=== PATIENT | female | born 1955 | race Caucasian/White ===

== ENCOUNTER → 2017-11-28 | Outpatient (CLI) | payer BC | END | disposition home or self-care (01) | LOC: LAB 13:48 | DX: R94.7 Abnormal results of other endocrine function studies (principal) | CPT/HCPCS: 81050; 82530 ==

== ENCOUNTER → 2018-01-02 | Outpatient (CLI) | payer BC ==
[2018-01-02 15:15] LABS: Specimen Source CERVIX
[2018-01-03 15:24] LABS: Source Cervix
[2018-01-04 11:58] LABS: HPV Genotype 16 Not Detected (NOTDET); HPV Genotype 18 Not Detected (NOTDET)
[2018-01-11 12:22] LABS: HPV High Risk Other Not Detected (NOTDET)
== END ==
LOC: OLS 14:55 → LAB SHORT 14:55
PROVIDERS: Nurse Practitioner Women's Health
DX: Z12.4 Encounter for screening for malignant neoplasm of cervix (principal); Z20.2 Contact with and (suspected) exposure to infections with a predominantly sexual mode of transmission; Z91.89 Other specified personal risk factors, not elsewhere classified
CPT/HCPCS: 87491; 87591; 87624; G0123

== ENCOUNTER 2019-11-05 01:37 | Emergency (ER) | payer BC ==
[~2019-11-05] VITALS: Ht 157.5 cm; Wt 68.0 kg
== END 2019-11-05 03:41 | disposition home or self-care (01) ==
LOC: ER 01:37
DX: S09.90XA Unspecified injury of head, initial encounter (principal); F10.20 Alcohol dependence, uncomplicated; W01.198A Fall on same level from slipping, tripping and stumbling with subsequent striking against other object, initial encounter
CPT/HCPCS: 70450; 99284-25

== ENCOUNTER 2022-07-29 22:16 | Inpatient (IN) | payer MEDICARE, BC ==
[~2022-07-29] VITALS: Ht 157.5 cm; Wt 72.2 kg
[2022-07-29 23:20] LABS: Source, Urine Clean Catch
[2022-07-29 23:22] LABS: Bilirubin, Urine Neg (Neg); Blood, Urine Neg (Neg); Glucose Qualitative, Urine Neg (Neg); Ketones, Urine 1+ (Neg); Leukocyte Esterase, Urine 1+ (Neg); Nitrite, Urine Neg (Neg); Protein, Urine 1+ (Neg); Urobilinogen, Urine NORM (Normal)
[2022-07-29 23:28] LABS: Appearance, Urine Clear (Clear); Color, Urine Yellow (P-Yellow)
[2022-07-29 23:32] LABS: Bacteria Rare /hpf; Red Blood Cells, Urine Not Seen /hpf (0-2); Squamous Epithelial Cells Rare /hpf (Few); Transitional Epithelial Cells Few /hpf (0-Rare); White Blood Cells, Urine 0-2 /hpf (0-5)
[2022-07-29 23:47] LABS: BASOPHILS ABSOLUTE AUTO 0.06 K/mm3 (0.00-0.23); BASOPHILS PERCENT AUTO 1 % (0-2); EOSINOPHILS ABSOLUTE AUTO 0.08 K/mm3 (0.00-0.68); EOSINOPHILS PERCENT AUTO 2 % (0-6); Hematocrit 31.7 % (33.0-51.0); Hemoglobin 10.1 g/dL (11.5-16.0); IMMATURE GRAN ABSOLUTE AUTO 0.02 K/mm3 (0.00-0.10); IMMATURE GRAN PERCENT AUTO 1 % (0-1); LYMPHOCYTES PERCENT AUTO 17 % (21-46); MONOCYTES ABSOLUTE AUTO 0.38 K/mm3 (0.16-1.47); MONOCYTES PERCENT AUTO 9 % (4-13); Mean Corpuscular HGB 27.6 pg (26.0-34.0); Mean Corpuscular HGB Conc 31.9 g/dL (31.5-36.5); Mean Corpuscular Volume 87 fL (80-100); Mean Platelet Volume 9.1 fL (9.1-12.4); NEUTROPHILS PERCENT AUTO 70 % (41-73); Platelet Count 105 K/mm3 (150-400); RDW Coefficient Variation 16.5 % (11.7-14.2); RDW Standard Deviation 51.2 fL (35.1-46.3); Red Blood Cell Count 3.66 M/mm3 (3.80-5.20); White Blood Cell Count 4.14 K/mm3 (4.00-11.30)
[2022-07-30 00:13] LABS: Albumin, Blood 2.3 g/dL (3.4-5.0); Albumin/Globulin Ratio 0.6 (0.8-1.8); Bilirubin, Total 0.4 mg/dL (0.1-1.0); Bun/Creatinine Ratio 75.9 (12.0-20.0); Calcium, Blood 8.3 mg/dL (8.5-10.1); Creatinine, Blood 0.32 mg/dL (0.40-1.00); Free Thyroxine 1.26 ng/dL (0.70-1.60); Globulin, Blood 3.7 g/dL (2.2-4.0); Potassium, Blood 4.1 mmol/L (3.5-5.5); Thyroid Stimulating Hormone 8.16 uIU/mL (0.360-4.800)
--- NOTE | 2022-07-30 06:08 | NUR ---
NEW ADMIT/SHIFT SUMMARY: NEW ADMIT FROM ER TO ICU 7. PT ARRIVED TO UNIT VIA ER GURNEY AT 0415. PT WAS TRANSFERRED TO BED VIA SLIDE SHEET AND PT TOLERATED FAIRLY. PT IS A&O X 3 BUT DOES NOT KNOW THE YEAR; PT STATES " IT IS 1964." PT IS IRRITABLE AND ANXIOUS AT THIS. PT REQUESTS THAT WE STOP ASKING QUESTIONS BECAUSE SHE "DOESN'T WANT TO BE GRILLED." PT ON RA UPON ARRIVAL WITH O2 LEVELS 92< AND RR 20-24. CONTINUOUS FORGE HEATER IN PLACE WITH HR IN THE 80'S, SBP 100'S AND MAP 68<. FIRST LITER BOLUS COMPLETE, AND SECOND BOLUS STARTED AT THIS TIME; PT RESPONDING WELL TO FLUID REPLACEMENT. PT HAS HYPERACTIVE BS IN ALL QUADRANTS, MODERATE DISTENTION NOTED WITH A HX OF ALCOHOLIC ASCITES, AND TENDERNESS IN RLQ UPON PALPATION. PT HAD A SMALL BOWEL MOVEMENT IN THE ER PRIOR TO TRANSFER. PT CUURENTLY HAS TEMP GUADARRAMA IN PLACE THAT IS DRAINING TO GRAVITY; URINE MAKAYLA AND CLEAR. PT HAS REDDENED EVA AREA UPON ADMISSION, AND C/O TENDERNESS IN REGION. PT HAS SCATTERED BRUISES ON ARMS AND HANDS AND VARIOUS SKIN TEARS AND SCABS IN UPPER EXTREMITIES; SEE PICTURES. SIGNIFICANT CELLULITIS IN BLE WITH VARIOUS OPEN WOUNDS; PT STATES THIS IS A CHRONIC CONDITION. PT HAS PPP X 3, DOPPLER USED FOR R. PEDAL PULSE; CAP REFIL MAINTAINING < 3 SECONDS. PT WEAK IN LOWER EXTREMITIES, AND HAS MODERATE STRENGTH IN ARMS AND IS ABLE TO HELP WITH TURNING. PT "SOHAN" LEFT THE ER TO GO HOME AND GET SOME REST. THE PT'S DID NOT LEAVE A NUMBER AND TOLD THE MANAGER WORK THAT HE WILL CALL IN THE MORNING TO FIND OUT WHERE THE PT IS. WILL CONTINUE TO MONITOR UNTIL ONCOMING RN ARRIVES.
--- NOTE | 2022-07-30 07:43 | NUR ---
PT INTERMITTENTLY HOLLERING OUT, ASKED FOR HER , SAID HE WAS OUT ON THE COUCH, REORIENTED, ARGUED, ASKED FOR PAIN MEDS. VERY SLEEPY, SATS DROPPING TO MID 80'S, OXYGEN VIA NC @ 2L APPLIED WITH SATS TO MID 90'S. BILAT LOWER EXTREM ITIES ARE SCALEY, RED, RAW, BLOODY, IRRITATED AND SWOLLEN, DIFFICULT TO FEEL PULSES. CORE TEMP 97.2 VIA GUADARRAMA, IV FLUIDS INFUSING PER ORDERS.
--- NOTE | 2022-07-30 08:19 | NUR ---
NOTIFIED OF CONSULT. INFORMATION GIVEN.
--- NOTE | 2022-07-30 13:55 | NUR ---
ANI MOVES POSITION IN BED TO HER COMFORT. SHE RAISES AND LOWERS THE LEFT LEG AND MOVES HER UPPER BODY, MINIMAL SHIFTING TO THE RIGHT HIP. WHEN SHE WAKES SHE COMPLAINS OF PAIN. SHE IS NOTED TO HAVE REDNESS IN THE ABDOMINAL FOLD AND GROIN FOLDS, UPON TRYING TO CLEAN AND POWDER THESE AREAS PT GETS UPSET AND COMPLAINS OF DISCOMFORT. SHE STATES SHE HAS NEUROPATHY IN HER LEGS AND THAT IS WHY SHE HASN'T BEEN CARING FOR THEM. ALTHOUGH WHEN LIFTING TO REPOSITION, SHE HOLLERS OUT IN PAIN. O2 VIA NC @ 2L WITH GOOD MAINTENANCE OF SATS.
--- NOTE | 2022-07-30 15:01 | NUR ---
IN TO SEE PT, PT NOT ABLE TO ANSWER QUESTIONS FOR HIM. ONCE HE EXAMINES HER AND LEAVES SHE IS ABLE TO MAKE SMALL CONVERSATION, CANNOT ANSWER SIMPLE QUESTIONS, LIKE "HOW LONG HAVE YOU LIVED IN [place]?" SHE ANSWERS, "I WAS BORN IN [place].". WHEN QUESTIONED ABOUT HER LEGS, SHE DOESN'T ANSWER AGAIN. SHE TALKS ABOUT MANNS CHOICE. WILL ASK MY NAME AND THEN SAY, "OH, THAT'S RIGHT, YOU JUST TOLD ME." SHE REPEATEDLY SAYS, "IT'S NICE HERE, I LIKE IT HERE." REMINDED THAT SHE IS IN THE HOSPITAL AND SHE SAYS, "YES."
[2022-07-30 15:05] LABS: International Normalized Ratio 1.12; Prothrombin Time Results 11.7 Sec (9.7-11.5)
--- NOTE | 2022-07-30 17:45 | NUR ---
ANI IS RESTING QUIETLY AT THIS TIME, OXYGEN VIA NC @ 2L, HEART RATE AND VITALS STABLE. RIGHT LEG IS WEEPING SEROSANGUINOUS, PAINFUL TO TOUCH. LEFT LEG IS LESS SWOLLEN AND SLOUGHING LESS THAN THE RIGHT, STILL PAINFUL TO THE TOUCH. TOOK IN ONLY A COUPLE OF BITES OF FOOD AT DINNER, DRANK WATER WELL. PT IS NOW SURGICAL STATUS NO TELE, NO OTHER CHANGES.
--- NOTE | 2022-07-30 20:37 | NUR ---
PT ARRIVED TO THE FLOOR AT APPROX 1935, A/O X3. PT TRANSFERED FROM [facility] TO BED. VITAL SIGNS TAKEN. BLE WOUNDS ANGLE AT TIME OF ARRIVAL, ASSESSED AND DRESSED. REPORTS PAIN W/ MOVEMENT BUT STATES SHE HAS NO PAIN UNLESS BEING MOVED. PLEASANT AND COOPERATIVE W/ CARE. ORIENTED TO ROOM AND CALL LIGHT. WILL CONTINUE TO MONITOR.
[2022-07-31 04:02] LABS: Vancomycin, Trough 4.2 ug/mL (5.0-10.0)
--- NOTE | 2022-07-31 05:26 | NUR ---
SHIFT SUMMARY A/O X2-3, FORGETFUL AT TIMES. VITAL SIGNS STABLE THROUGHOUT SHIFT. GUADARRAMA DRAINING TO GRAVITY. PAIN MANAGED W/ IV PAIN MEDICATION. BLE WRAPPED AT BEGINING OF SHIFT. WILL CONTINUE TO MONITOR AND REPORT TO ONCOMING RN.
--- NOTE | 2022-07-31 16:42 | NUR ---
DR. ALVARADO ROUNDED DR. ALVARADO WAS NOTIFIED THAT PT COMPLAINED OF R ARM AND ANKLE PAIN. PT IS SOMEWHAT INCONSISTANT IN HER DESCRIPTION OF PAIN.
--- NOTE | 2022-07-31 18:12 | NUR ---
BLE DRESSINGS CHANGED BLE DRESSINGS REMOVED, PURULENT DRAINAGE FROM R LE WOUND. WHEN DRESSING FROM THE POSTERIOR PORTION OF THE LEG WAS REMOVED PT'T STARTED TO HAVE SOME BLEEDING, GENTLE PRESSURE WAS APPLIED AND BLEEDING STOPPED. PT'S RIGHT LEG WAS GENTLY CLEANSED WITH SKINTEGRITY. NON ADHERANT PADS WITH SCANT AMOUNT OF TRIPLE ABX OINTMENT APPLIED TO POSTERIOR WOUND. ABD PAD PLACED OVER NON-ADHERANT DRESSINGS TO ABSORB DRAINAGE. ABD PAD USED ON THE R MEDIAL LEG WOUND. PT HAS DRY WOUNDS TO THE ANTERIOR RIGHT ANKLE AND POSTERIOR FOOT, TRIPLE ABX OITMENT AND NON-ADHERANT DRESSING APPLIED. PT'S RIGHT LEG WAS GENTLY WRAPPED WITH CAITLIN WRAP TO THE ANKLE. GAUZE PLACE BETWEEN PT'S TOES ON THE RIGHT FOOT. PT COMPLAINED OF DISCOMFORT R/T LONG TOE NAILS GETTING CAUGHT ON THE BLANKETS, PT'S RIGHT TOES PADDED WITH 4X4 GAUZE AND KERLEX, ANOTHER CAITLIN WRAP WAS GENTLY APPLIED FROM THE FOOT TO THE ANKLE. WHEN PLACING DRESSING OVER THE TOES THIS RN NOTICED THE 4TH AND 5TH TOE APPEARED DUSKY AND DID NOT APPEAR TO HAVE CAP REFILL. DR. ALVARADO NOTIFIED, WILL CALL PODIATRY CONSULT PER DR. PLATT. LEFT LOWER EXTREMITY HAS FEWER WOUNDS THAT HAVE LESS DRAINAGE, WOUNDS TO THE LEFT LEG WERE COVERED WITH TRIPLE ABX OITMENT AND NON-ADHERANT DRESSINGS. DRESSINGS HELD IN PLACE WITH CAITLIN WRAP FROM THE KNEE TO THE FOOT. DR. ALVARADO NOTIFIED OF DRESSINGS/SUPPLIES USED FOR DRESSING CHANGE AND OF DUSKY 4TH AND 5TH TOES. PT WAS PREMEDICATED FOR DRESSING CHANGE. SHE BECAME QUITE PAINFUL AND YELLED OUT WHEN DRESSING TO THE RIGHT LEG WAS REMOVED AND THE WOUND CLEANSED. PT WAS ONLY ABLE TO TOLERAGE GENTLE CLEANSING TO THE BLE. THE AREA AROUND THE OPEN WOUNDS IS RED WITH DRY FLAKY SKIN. PT'S R FOOT IS RED, NO CHANGE FROM AM ASSESSMENT, TIBIAL AND PEDAL PULSES PRESENT BILATERALLY. PT RESPONDED WELL TO EXPLANTION BEFORE AND DURING DRESSING CHANGE. PT WAS PROVIDED WITH COACHING THROUGH THE DRESSING CHANGE. SHE RESPONDS WELL TO COMMUNICATION ABOUT WHAT STAFF ARE DOING. A SHEET AND BLANKET SUPPORT WAS PLACED ON THE END OF THE PATIENTS BED TO PREVENT DISCOMFORT FROM BLANKETS RESTING/CATCHING ON HER FEET.
--- NOTE | 2022-07-31 18:36 | NUR ---
SHIFT SUMMARY PT REMAINS IN THE HOSPITAL GETTING IV ABX FOR CELLULITIS INFECTION. AT THIS TIME ORTHO IS WAITING FOR INFECTION TO IMPROVE BEFORE DOING SURGERY. PLAN FOR PT TO BE NPO AT MIDNIGHT FOR POSSIBLE SURGERY TOMORROW, DEPENDING ON CELLULITIS INFECTION. DRESSINGS TO BLE CHANGED TODAY (SEE NOTE). PT HAS BEEN CONFUSED/FORGETFUL T/O THE DAY. PT HAS ALSO BEEN EMOTIONAL AND TEARFUL. SHE IS FEARFUL OF CARE BUT RESPONDS WELL WHEN STAFF PROVIDE EXPLANATIONS ABOUT CARE. PT HAS BEEN A 2 ASSIST FOR REPOSITIONING. MINIMAL PAIN WHILE AT REST, PT DECLINED PAIN MEDICATION MUCH OF THE DAY; SHE AGREED TO TAKE NORCO PRIOR TO DRESSING CHANGE THIS EVENING. PT'S SON AND VISITED THE PT TODAY. WILL MONITOR UNTIL REPORT TO NOC RN.
[2022-07-31 19:29] LABS: Vancomycin, Trough 20.7 ug/mL (5.0-10.0)
--- NOTE | 2022-07-31 19:48 | NUR ---
DR ZAMORA CONTACTED TO CLARIFY ARTERIAL IMAGING ORDER FOR BLE. OK TO HAVE IMAGING DONE ROUTINLY ON 08/01/22. ORDER DOES NOT NEED TO BE DONE STAT 07/31.
[2022-08-01 04:56] LABS: BASOPHILS ABSOLUTE AUTO 0.05 K/mm3 (0.00-0.23); BASOPHILS PERCENT AUTO 1 % (0-2); EOSINOPHILS PERCENT AUTO 2 % (0-6); Hematocrit 30.7 % (33.0-51.0); Hemoglobin 9.9 g/dL (11.5-16.0); IMMATURE GRAN ABSOLUTE AUTO 0.04 K/mm3 (0.00-0.10); IMMATURE GRAN PERCENT AUTO 1 % (0-1); LYMPHOCYTES PERCENT AUTO 18 % (21-46); MONOCYTES ABSOLUTE AUTO 0.51 K/mm3 (0.16-1.47); MONOCYTES PERCENT AUTO 10 % (4-13); Mean Corpuscular HGB 28.2 pg (26.0-34.0); Mean Corpuscular HGB Conc 32.2 g/dL (31.5-36.5); Mean Corpuscular Volume 88 fL (80-100); Mean Platelet Volume 9.8 fL (9.1-12.4); NEUTROPHILS ABSOLUTE AUTO 3.42 K/mm3 (1.96-9.15); NEUTROPHILS PERCENT AUTO 68 % (41-73); Platelet Count 106 K/mm3 (150-400); RDW Coefficient Variation 17.3 % (11.7-14.2); RDW Standard Deviation 54.9 fL (35.1-46.3); Red Blood Cell Count 3.51 M/mm3 (3.80-5.20); White Blood Cell Count 5.02 K/mm3 (4.00-11.30)
[2022-08-01 05:16] LABS: Bun/Creatinine Ratio 48.8 (12.0-20.0); Calcium, Blood 8.6 mg/dL (8.5-10.1); Creatinine, Blood 0.43 mg/dL (0.40-1.00); Magnesium, Blood 1.6 mg/dL (1.6-2.4); Potassium, Blood 3.9 mmol/L (3.5-5.5)
--- NOTE | 2022-08-01 08:00 | NUR ---
[employer] MAINTENANCE CHIEF AT BEDSIDE. REMOVED DRESSING TO RLE & REPLACED WITH NEW ABD PAD, GAUZE, & CAITLIN WRAP.
--- NOTE | 2022-08-01 10:49 | NUR ---
DR LOVELACE AT BEDSIDE TO EVALUATE PATIENT. STATED THAT PATIENT IS IN NEED OF PARTIAL HIP REPLACEMENT HOWEVER SURGERY WILL BE DLEAYED AWAITING PODIATRY CONSULT. VERBALLY ORDERED TO KEEP PATIENT NPO UNTIL PODIATRY CONSULTS PATIENT.
--- NOTE | 2022-08-01 17:43 | NUR ---
SHIFT SUMMARY NO ACUTE CHANGES THIS SHIFT. ORTHO SAW PATIENT AND ELECTED TO DELAY SURGERY UNTIL AFTER PODIATRY CONSULTED PATIENT. AWAITNG PODIATRY CONSULT THIS EVENING BY DR ZAMORA. PATIENT C/O MILD PAIN WITH MOVEMENT, MEDICATED PER EMAR. BLE MINIMAL DRAINAGE AND DRESSED W/ GAUZE & CAITLIN WRAPS PRN. GUADARRAMA IN PLACE AND DRAINING DARK YELLOW URINE. PATIENT DOES NOT USE CALL LIGHT APPROPRIATELY, WILL YELL OUT AT TIMES, NEEDS REINFORCEMENT OF CALL LIGHT USE OFTEN. WILL REPORT TO ONCOMING RN.
[2022-08-01 20:27] LABS: Vancomycin, Trough 20.6 ug/mL (5.0-10.0)
--- NOTE | 2022-08-02 03:37 | NUR ---
SHIFT SUMMARY PT VERY EMOTIONAL THIS SHIFT. CRIES FREQUENTLY WITH CARE. ALERT AND ORIENTED, BUT CAN APPEAR TO BE FORGETFUL AT TIMES. 1MG DILAUDID FOR PAIN MANAGEMENT. REPOSITIONING IN BED PRN AND KEEPING BLE ELEVATED ON PILLOWS. DRESSINGS TO BLE APPEAR CDI. IV ABX PER ORDERS. NPO SINCE MIDNIGHT FOR POSSIBLE PROCEDURE TODAY. CALL LIGHT WITHIN REACH.
[2022-08-02 04:51] LABS: Hematocrit 29.2 % (33.0-51.0); Hemoglobin 9.6 g/dL (11.5-16.0); Mean Corpuscular HGB 28.1 pg (26.0-34.0); Mean Corpuscular HGB Conc 32.9 g/dL (31.5-36.5); Mean Corpuscular Volume 85 fL (80-100); Mean Platelet Volume 9.3 fL (9.1-12.4); Platelet Count 116 K/mm3 (150-400); RDW Coefficient Variation 16.9 % (11.7-14.2); RDW Standard Deviation 52.8 fL (35.1-46.3); Red Blood Cell Count 3.42 M/mm3 (3.80-5.20)
[2022-08-02 05:58] LABS: Albumin, Blood 1.8 g/dL (3.4-5.0); Albumin/Globulin Ratio 0.5 (0.8-1.8); Bilirubin, Total 0.7 mg/dL (0.1-1.0); Bun/Creatinine Ratio 38.1 (12.0-20.0); Calcium, Blood 8.5 mg/dL (8.5-10.1); Creatinine, Blood 0.45 mg/dL (0.40-1.00); Globulin, Blood 3.5 g/dL (2.2-4.0); Percent Saturation 25.5 % (15.0-50.0); Potassium, Blood 3.9 mmol/L (3.5-5.5); Total Protein, Blood 5.3 g/dL (6.4-8.2)
--- NOTE | 2022-08-02 12:51 | NUR ---
DRESSINGS CHANGED ON BILATERAL LOWER EXTREMETIES. WOUND CLEANSER, NON ADHERENT PAD AND CAITLIN BANDAGE USED FOR LEFT LOWER LEG. PT TOLERATED WELL. BANDAGES ON RIGHT LEG WERE STUCK TO OPEN WOUNDS. REMOVAL WAS VERY PAINFUL FOR PT. MEDICATED PER EMAR. WOUND CLENSER USED. XEROFORM WAS PLACED ON OPEN AREA OF LEG, FOLLOWED BY ABD DRESSING, GAUZE ROLL, AND CAITLIN BANDAGE. ANTIBIOTIC OINTMENT USED ON LEFT FOOT AND THEN COVERED WITH A NON ADHERENT PAD AND GUAZE ROLL. LEGS RESTING ON PILLOWS. PT RESTING.
--- NOTE | 2022-08-02 17:40 | NUR ---
SHIFT SUMMARY PT TRANSFERED FROM SURGICAL FLOOR THIS MORNING. PT ADMITTED FOR SEPSIS D/T CELLULITES BUT PT ALSO HAS RIGH FEMUR FX. PT WAS TO BE NPO FOR POSSIBLE ORTHO SURGERY. PLACED CALL TO DR. CAMPUZANO IN AFTERNOON AND WAS NOTIFIED THAT THERE WOULD BE NO SURGERY TODAY AND THAT PT WAS OK TO EAT. BILATERAL LOWER DRESSING'S WERE CHANGED TODAY. RIGHT HIP AND LOWER LEGS ARE VERY PAINFUL WITH MOVEMENT OR TOUCH. PT MEDICATED X1 PER EMAR. PT VERY EMOTIONAL AND BECOMES TEARY EYED EASILY. DR CAMPUZANO WAS IN TO SEE PT LATE IN THE AFTERNOON. DR REQUESTED TO BE PART OF NEXT DRESSING CHANGE TOMORROW. WAS AT BEDSIDE DURING AFTERNOON. BED IN LOWEST POSITION AND CALL [facility] IN REACH.
--- NOTE | 2022-08-03 04:09 | NUR ---
SHIFT SUMMARY PT APPEARS TO BE MORE ALERT AND ORIENTED T/O SHIFT. AOX4. PT GETS EMOTIONAL EASILY. BED BATH, LINEN CHANGED. [place] PLACED. SHOWER CAP. ORAL CARE. PT REPORTS SIGNIFICANT RELIEF AFTER. PAIN IS TOLERABLE T/O SHIFT. MEDICATED WITH FENTANYL 25MCG ONCE AT MIDNIGHT AND NORCO 2 TAB TWICE. PAIN HAS APPETITE, HAS BEEN EATING AND DRINKING DENIES NAUSEA AND VOMITING. IV ABX ADMINISTERED. BLE WITH CAITLIN WRAP. PLAN FOR DR. CAMPUZANO TO RECHECK PT TODAY AND DRESSING CHANGE. PT ABLE TO HELP WITH REPOSITIONING, ABLE TO MOVE FROM SIDE TO SIDE WITH ASSISTANCE. GUADARRAMA IN PLACE WITH DARK URINE. CALL LIGHT WITHIN REACH. WILL PROVIDE REPORT TO ONCOMING NURSE.
[2022-08-03 04:11] LABS: Vancomycin, Trough 15.5 ug/mL (5.0-10.0)
--- NOTE | 2022-08-03 16:20 | NUR ---
Spiritual care visit attempted. Upon receiving a call from RN Audit Machine Operator Aureliano stating that the pt was requesting a Barge Captain visit, I visit pt. Pt Declines visit. I will continue to remain available.
--- NOTE | 2022-08-03 17:20 | NUR ---
SHIFT SUMMARY PT ALERT AND COOPERATIVE OF CARE. PT EMOTIONAL AND CRIES DURING MOST INTERACTIONS. PT AT TIMES SEEMS CONFUSED AND FORGETFUL. PT C/O RIGHT HIP PAIN WITH MOVEMENT. MEDICATED PER EMAR WITH GOOD AFFECT. PT ATE SMALL PORTIONS OF HER MEALS TODAY BUT TOLERATED WELL. PT USES CALL LIGHT APPROPTIATELY. BED IN LOWEST POSITION AND CALL LIGHT IN REACH.
--- NOTE | 2022-08-03 18:25 | NUR ---
DR CAMPUZANO ASSESSED PT'S HIP FX AND ASSISTED WITH THE DRESSING CHANGE. NEW BANDAGES APPLIED AND ORDERS WERE GIVEN.
--- NOTE | 2022-08-04 05:12 | NUR ---
VICE PRESIDENT OF TALENT ACQUISITION SUMMARY: A&Ox4. PLEASANT AND COOPERATIVE WITH CARE. VSS. NO ACUTE CONCERNS T/O THE NIGHT. IV ABx ADMINISTERED @ 0000 & 0400; PO NORCO x2 ADMINISTERED ONCE FOR BLE PAIN. NO BM TODAY. TEMP GUADARRAMA PATENT AND DRAINING TO GRAVITY. BLEs WRAPPED IN CAITLIN BANDAGES. TOES WARM AND WITH SENSATION TO TOUCH. IV x2 PATENT AND FLUSHING WITH SOME POSITIONING. CONTINUES TO HAVE EPISODES OF CRYING, STATING HOW GRATEFUL SHE IS FOR EVERYONE. WILL REPORT TO ONCOMING RN.
--- NOTE | 2022-08-04 18:14 | NUR ---
SHIFT SUMMARY PT A&O X 2. WHEN SPEAKING IS UNABLE TO COMPLETE A THOUGHT TO COMPLETION, JUMPS TO MANY DIFFERENT UNCONNECTED THOUGHTS/SUBJECTS. IS EASILY TEARY EYED. HAS GONE THROUGH 5-6 TISSUE BOXES THIS SHIFT. BILAT LEGS WITH DRESSINGS AND CAITLIN WRAPS. WOUND CLINIC CONSULT PENDING. PT C/O R HIP FRACTURE PAIN, MEDICATED PER EMAR UPON PT'S REQUEST FOR PAIN MEDS. F/C INTACT & PATENT, DRAINING CLEAR YELLOW URINE. PT IS PLEASANT & COOPERATIVE WITH ALL CARE. PLAN IS LIKELY SNF PLACEMENT FOR CONTINUED IV ANTI BIOTICS AND POSSIBLE HIP REPAIR SURGERY ONCE LEG CELLULITIS RESOLVES.
--- NOTE | 2022-08-05 04:23 | NUR ---
MANUFACTURING PLANT TECHNICIAN SUMMARY: A&Ox4. PLEASANT AND COOPERATIVE WITH CARE. VSS. HAS BEEN AWAKE MUCH OF THE NIGHT. MEDICATED PAIN x2. C/O RIGHT FOOT FEELING LIKE IT NEEDS TO BE ELEVATED MORE AND MORE. HAS ALSO BEEN VERY HUNGRY T/O THE NIGHT, REQUESTING MULTIPLE SNACKS AND READJUSTMENTS OF PILLOWS. NO ASE TO ABx. CONTINUES TO BE VERY TEARFUL WHEN TALKING WITH STAFF; HAS USED SIX BOXES OF TISSUES DURING THIS SHIFT, ALONE. NS RUNNING KVO RFA. THIERRY PATENT AND DRAINING TO GRAVITY. WILL REPORT TO ONCOMING RN.
[2022-08-05 15:48] LABS: Creatinine, Blood 0.47 mg/dL (0.40-1.00); Vancomycin, Trough 13.7 ug/mL (5.0-10.0)
--- NOTE | 2022-08-05 19:24 | NUR ---
SHIFT SUMMARY BILAT LOWER EXT DRESSING CHANGES DONE TODAY AFTER WOUND CLINIC NURSE SAW PT. PT A&O X 4. PLEASANT & COOPERATIVE WITH ALL CARE. PT WORKED WITH PT TODAY.
--- NOTE | 2022-08-06 04:12 | NUR ---
NOTCHING PRESS OPERATOR SUMMARY NO ACUTE CHANGES. PT AWAKE INTERMITTANTLY T/O THE NIGHT. PT IS ABLE TO ANSWER ORIENTATION QUESTIONS BUT HAS SOME CONFUSION, FLIGHT OF IDEAS, AND DIFFICULT RECALL. PT CONTINUES TO C/O OF PAIN PRIMARILY IN RLE; LITTLE PAIN IN RIGHT HIP. PT IS PAINFUL AT REPOSITION. ELEVATED BILATERAL HEELS OFF BED DUE TO SENSITIVITY AND REDDENING OF SKIN. APPLIED SILICONE CREAM TO DRY SKIN. EMOTIONALLY LIABLE AND EASILY TEARFUL. PAIN MEDS 3X P/EMAR. PT HAD A BLOOD PRESSURE OF 90/50; PT ASYMPTOMATIC; SITTING UP, TALKING, NO CHANGES IN MENTATION OR CAP REFILL. PT IS ABLE TO ADVOCATE FOR NEEDS; CALL LIGHT IN REACH.
--- NOTE | 2022-08-06 08:00 | NUR ---
Pt laying in bed watching tv, is very axious and tearful, she yelled out when this nurse moved the tube to her angel cath without touching her, she is a/ox3, pleasant and appreciative of care but very touchy, and emotional, reports right hip pain and leg pain, states as long as she doesn't move she's ok, any movement it shoots to 8/10, lungs are clear in upper adan, dim/course in bases, resp even and unlabored, no cough noted, hrr, some edema +1 to b/l le, pp faint, cap refill <4 sec, vs stable, running a bit low on b/p, iv site to rfa is clear and patent, infusing ns at tko, btx4, abd flat soft nontender, voids via angel cath draining clear yellow urine, skin has extensive wounds to right le, with nonstick dressing in place, skin is very dry fragile to b/l legs, moves upper ext well, daisha, call light in reach.
--- NOTE | 2022-08-06 12:59 | NUR ---
pt remains emotionally labile, tearful at times, did mediate her for pain, she reports it's much better, eating lunch at this time. call light in reach.
--- NOTE | 2022-08-06 14:48 | NUR ---
went to remove pts tray, she was unable to tell this nurse to take or leave her tray, is tearful, and sates she can't answer right now, left her tray, came back later to give her some medications, she was in a very different state, smiling, overnice. call light in reach.
--- NOTE | 2022-08-06 18:13 | NUR ---
Pt had a bedbath, had stool in attends, complete bed change, pt is very touchy about being touched and moving to fast for her, attempted to change her dressing on her right le, was able to remove the top dressing after soaking, but the one on the back is sticking a bit, and pt is screaming anytime she is touched, was able to get it about half way off, she couldn't tolerate it anymore so placed an abd pad under and left it that way, which she was in agreement for, no further changes this shift, call light in reach.
--- NOTE | 2022-08-07 03:08 | NUR ---
SUPERVISOR DRAPERY HANGING SUMMARY PT ON BED REST F/RT HIP FX AND CELLULITIS TO BLE. NO ACUTE CHANGES. PT RESTED MORE T/O THE NIGHT THAN THE PREVIOUS WAKEFUL NIGHT. PT INDICATED MORE PAIN CONTROL BUT SITLL C/O PAIN IN BLE'S AND RT HIP. COMPLETE BEDDING CHANGE THIS SHIFT AND FINISHED DRESSING CHANGE ON POSTERIOR RLE. DID NOT WRAP THE DRESSING PER PT REQUEST. PT IS VERY PAINFUL WHEN MOVING AND REQUIRES SLOW MOVEMENTS W/VERBAL CUES PRIOR TO. VSS. CONT W/NS KVO. PT A/OX4 BUT CONT T/HAVE FLIGHT OF IDEA AND NONSENSICAL THOUGHTS OCCASIONALLY. ELEVATED BLE T/RELIEVE PRESSURE OFF HEELS; APPEARANCE ARE RED NONBLANCHING. PT IS ABLE TO ADVOCATE FOR NEEDS AND CALLS APPROPRIATELY; CALL LIGHT IN REACH.
--- NOTE | 2022-08-07 19:08 | NUR ---
SHIFT SUMMARY: NO ACUTE CHANGES THIS SHIFT. PATIENT ALERT AND ORIENTED. SLOW TO RESPOND. USES CALL LIGHT APPROPRIATELY. DRESSING CHANGED TO BLE. PATIENT RECEIVED PRN PAIN MEDS PRIOR TO DRESSING CHANGED. PATIENT TOLERATED DRESSING CHANGED WELL WITHOUT SCREAMING AND YELLING OUT. PATIENT HAS BEEN RESTING IN BED OFF AND ON T/O SHIFT. GUADARRAMA PATENT DRAINING TO GRAVITY WITH YELLOW URINE. TURN Q2. PATIENT RECEIVED BEDBATH AND LINEN CHANGED THIS SHIFT. INFUSING NS KVO 25 MLS/HR. RECEIVED ALL SCHEDULED MEDS THIS SHIFT. BED IN LOWEST POSITION, LOCKED, BED ALARM ON AND CALL LIGHT IN REACH.
--- NOTE | 2022-08-08 04:16 | NUR ---
SENIOR RECEPTIONIST SUMMARY NO ACUTE CHANGES. PT RESTED T/O THE NIGHT WITH PERIODS OF WAKEFULLNESS. PT C/O INTENSE PAIN IN THE RIGHT LEG/HIP. MED PER EMAR. DRESSING TO BLE CDI. PT SLOW TO RESPOND; RESPONDS WELL TO VERBAL CUES BEFORE PROVIDING CARE/INTERVENTIONS. PT CALLS APPROPRIATELY AND ADVOCATES FOR NEED. CALL LIGHT IN REACH; BED ALARM ON.
[2022-08-08 05:06] LABS: Hematocrit 30.4 % (33.0-51.0); Hemoglobin 9.4 g/dL (11.5-16.0); Mean Corpuscular HGB 27.9 pg (26.0-34.0); Mean Corpuscular HGB Conc 30.9 g/dL (31.5-36.5); Mean Corpuscular Volume 90 fL (80-100); Mean Platelet Volume 9.9 fL (9.1-12.4); Platelet Count 194 K/mm3 (150-400); RDW Coefficient Variation 17.4 % (11.7-14.2); RDW Standard Deviation 55.4 fL (35.1-46.3); Red Blood Cell Count 3.37 M/mm3 (3.80-5.20)
[2022-08-08 05:26] LABS: Bun/Creatinine Ratio 43.6 (12.0-20.0); Calcium, Blood 8.1 mg/dL (8.5-10.1); Creatinine, Blood 0.44 mg/dL (0.40-1.00)
[2022-08-08 17:10] LABS: Vancomycin, Trough 13.9 ug/mL (5.0-10.0)
--- NOTE | 2022-08-08 20:15 | NUR ---
SUMMARY- PT A/O X4. BEDREST, ROUTINE TURNS. INCONT BM ONCE TODAY. GUADARRAMA CATH CARE COMPLETE. SKIN INTACT TO EVA, APPLIED POWDER. TOLERATING FOOD AND FLUIDS. PAIN IN LEGS CONTROLLED WITH NORCO 1 APPROX Q4. PREMICATED WITH DILAUDID BEFORE DRESSING CHANGE TO LE. APPLIED XEROFORM AND ABD AND SECRUED WITH CHICKEN SKIN AND NET. AND SON IN TO VISIT THIS DENA. DR CAMPUZANO BY ABOUT 1600 TO SEE PT. NO CHANGES IN ORDERS. REPORTED TO TOMAS PARRA.
--- NOTE | 2022-08-09 04:58 | NUR ---
SHIFT SUMMARY R leg and R hip fx continue to be a source of pain. Pt medicated per emar, only one episode of severe pain tonight from her R hip. Recieving IV ABX and her line is kept KVO between doses. AOx3, vss, uses call light appropriatly, pleasant and cooperative with care.
[2022-08-09] MEDS ORDERED: BISA10S PR (11:19)
[2022-08-09] MEDS ORDERED: HYDR1TAB94 PO (11:20)
[2022-08-09] MEDS ORDERED: DOCU100 PO (11:20)
[2022-08-09] MEDS ORDERED: CELEXA10 MG PO (11:20)
[2022-08-09] MEDS ORDERED: DULCOLAX400 MG/5 M PO (11:21)
[2022-08-09] MEDS ORDERED: LIQUACEL PO (11:28)
[2022-08-09] MEDS ORDERED: SENN187 PO (11:30)
[2022-08-09] MEDS ORDERED: VISBIOME 112.51 EACH PO (11:30)
[2022-08-09 13:30] LABS: SARS-Cov-2 (COVID-19) PCR, MMC NEGATIVE (NEGATIVE)
[2022-08-09] MEDS ORDERED: CEPH500 PO (13:52)
--- NOTE | 2022-08-09 16:40 | NUR ---
PT DISCHARGED TO [facility] [id number] [facility]. BED TO [facility]. BELONGINGS SENT INCLUDING "ANTIBA" GISELLEE TO HOSP. CALLED [facility] AND GAVE REPORT TO FUENTES. SENT WITH THIERRY AFTER CALL TO SHAKIR REID RELATED TO PT'S IMOBILITY AND WOUNDS. HAD BM BEFORE DC.
== END 2022-08-09 15:20 | DRG 871 ==
LOC: ER 22:16 → ICUE 22:17 → ICUW 22:17 → SURS 22:17 → MEDS 22:17 → ICUE 07-30 04:07 → SURS 07-30 19:32 → MEDS 08-02 10:04
PROVIDERS: Emergency Medicine; Family Medicine; Internal Medicine; Orthopaedic Surgery; Pharmacist; Student in an Organized Health Care Education/Training Program; ADMIT Internal Medicine
DX: A41.1 Sepsis due to other specified staphylococcus (principal); G93.41 Metabolic encephalopathy; S72.001A Fracture of unspecified part of neck of right femur, initial encounter for closed fracture; L03.115 Cellulitis of right lower limb; L03.116 Cellulitis of left lower limb; D64.9 Anemia, unspecified; K70.31 Alcoholic cirrhosis of liver with ascites; R68.0 Hypothermia, not associated with low environmental temperature; E03.9 Hypothyroidism, unspecified; I73.9 Peripheral vascular disease, unspecified; W18.30XA Fall on same level, unspecified, initial encounter; F03.90 Unspecified dementia, unspecified severity, without behavioral disturbance, psychotic disturbance, mood disturbance, and anxiety; F10.20 Alcohol dependence, uncomplicated; L40.9 Psoriasis, unspecified; F12.90 Cannabis use, unspecified, uncomplicated; D69.6 Thrombocytopenia, unspecified; L30.9 Dermatitis, unspecified; I95.9 Hypotension, unspecified; Z20.822 Contact with and (suspected) exposure to COVID-19; Z79.899 Other long term (current) drug therapy
CPT/HCPCS: 36415; 51702; 70450; 71045; 73502; 80048; 80053; 80202; 81001; 82105; 82140; 82565; 82728; 83540; 83550; 83605; 83735; 84439; 84443; 85025; 85027; 85610; 85730; 87040; 93005; 93010; 93922; 93970; 96365-59; 96367-59; 97110; 97162; 97530; 99285-25; A9270; J0692; J1170; J1650; J2543; J3370; J7030; J7040; J7050; U0004

== ENCOUNTER → 2022-12-12 | Outpatient (CLI) | payer MEDICARE, BC, OTHER ==
[~2022-12-12] MED LIST: AMOX-CLAV 875-1 EAC5 PO; BISA10S PR; CELEXA10 MG PO; CEPH500 PO; DOCU100 PO; DULCOLAX400 MG/5 M PO; EUTHYROX100 MC1 PO; HYDR1TAB94 PO; LIQUACEL PO; SENN187 PO; TIZANIDINE HCL213 PO; VISBIOME 112.51 EACH PO
== END ==
LOC: LAB 16:31 → LAB SHORT 16:31
DX: L03.119 Cellulitis of unspecified part of limb (principal)
CPT/HCPCS: 87070; 87075; 87077; 87186; 87205

== ENCOUNTER → 2022-12-20 | Outpatient (CLI) | payer BC, OTHER | END | disposition home or self-care (01) | LOC: LAB SHORT 18:00 → LAB 18:00 | PROVIDERS: Physician Assistant | DX: G89.4 Chronic pain syndrome (principal) | CPT/HCPCS: G0480 ==

== ENCOUNTER 2024-09-16 12:38 | Emergency (ER) | payer OTHER ==
[~2024-09-16] VITALS: Ht 157.5 cm; Wt 72.6 kg
[2024-09-16 13:06] VITALS: BP 136/84
[2024-09-16] MEDS ORDERED: HYDROcodone 5-APAP 325 TAB PO ONE (14:30)
[2024-09-16] MEDS ORDERED: HYDROCODONE-AC1 EA11 PO ×2 (14:42→14:46)
== END 2024-09-16 14:52 | disposition home or self-care (01) ==
LOC: ER 12:38
DX: S52.691A Other fracture of lower end of right ulna, initial encounter for closed fracture (principal); Z79.890 Hormone replacement therapy; Z79.899 Other long term (current) drug therapy; W19.XXXA Unspecified fall, initial encounter
CPT/HCPCS: 29125; 73080; 73100; 99283-25; A9270